=== PATIENT | female | born 1995 | race African-American/Black ===

== ENCOUNTER 2017-03-30 16:01 | Emergency (ER) | payer OTHER ==
[~2017-03-30] VITALS: Wt 50.8 kg
[2017-03-30] MEDS ORDERED: ONDANSETRON (ODT) 4 MG TAB ODT STA (16:58)
[2017-03-30] MEDS ORDERED: ONDA4TAB14 PO (17:03)
--- NOTE | 2017-03-30 19:25 | ERD ---
ER Documentation Chief Complaint Chief Complaint VOMITING, MILD ABD PAIN S/P EATING, NO DIARRHEA HPI 21-year-old female presents emergency department complaining of nausea and nonbilious nonbloody vomiting since she ate bad salmon last night. Patient denies significant abdominal pain, she states that she does have some epigastric tenderness after she started vomiting. She denies any diarrhea or constipation. Denies dysuria ROS All systems reviewed and are negative except as per history of present illness. Medications Home Meds Active Scripts Ondansetron (Ondansetron Odt) 4 Mg Tab.rapdis, 4 MG PO Q6H Y for NAUSEA AND/OR VOMITING, #10 TAB Prov:GREG CHOU PA-C 03/30/17 Allergies Allergies: Coded Allergies: shrimp (Verified Allergy, Intermediate, rash and itching, 03/30/17) PMhx/Soc History of Surgery: No Anesthesia Reaction: No Hx Neurological Disorder: No Hx Respiratory Disorders: No Hx Cardiac Disorders: No Hx Psychiatric Problems: No Hx Miscellaneous Medical Probl: No Hx Alcohol Use: No Hx Substance Use: Yes (weed) Hx Tobacco Use: Yes Smoking Status: Current every day smoker Physical Exam Vitals Vital Signs Date Time Temp Pulse Resp B/P Pulse Ox O2 Delivery O2 Flow Rate FiO2 03/30/17 16:03 97.9 85 17 116/57 99 Physical Exam Const: [] Head: Atraumatic Eyes: Normal Conjunctiva ENT: Normal External Ears, Nose and Mouth. Neck: Full range of motion..~ No meningismus. Resp: Clear to auscultation bilaterally Cardio: Regular rate and rhythm, no murmurs Abd: Soft, non tender, non distended. Normal bowel sounds Skin: No petechiae or rashes Back: No midline or flank tenderness Ext: No cyanosis, or edema Neur: Awake and alert Psych: Normal Mood and Affect Results 24 hrs Current Medications Medications (Trade) Dose Ordered Sig/Aileen Route PRN Reason Start Time Stop Time Status Last Admin Dose Admin Ondansetron HCl (Zofran Odt) 4 mg ONCE STAT ODT 03/30/17 16:58 03/30/17 16:59 DC 03/30/17 17:28 Procedures/MDM 21-year-old female patient with vomiting and diarrhea, due to viral gastroenteritis vs food poisoning. Low suspicion for pseudomembranous colitis, diverticulitis, appendicitis, cholecystitis, pancreatitis, or other abdominal emergencies or acute cardiopulmonary conditions due to physical examination and diagnostic testing. Patient was given Zofran and passed PO challenge. Patient is hemodynamically stable for discharge. Prescription Zofran was given. Discussed to increase fluids. Discussed to return to the ED if not improving as expected or for any worsening conditions. Patient understood and agreed with this plan. Departure Diagnosis: Primary Impression: Nausea and vomiting Condition: Stable Patient Instructions: Nausea and Vomiting-Adult Referrals: DOCTOR,NOT ON STAFF Additional Instructions: FOLLOW UP WITH YOUR PRIMARY CARE PHYSICIAN TOMORROW.Return to this facility if you are not improving as expected. Return to this facility if you are not improving as expected. Take all medicines as directed. GREG CHOU PA-C Mar 30, 2017 19:25
== END 2017-03-30 18:08 | disposition home or self-care (01) ==
LOC: FTE 16:01
DX: R11.2 Nausea with vomiting, unspecified (principal); F17.210 Nicotine dependence, cigarettes, uncomplicated
CPT/HCPCS: Z7502; Z7610; 99283